=== PATIENT | female | born 1965 | race Caucasian/White ===

== ENCOUNTER 2023-06-01 14:24 | Outpatient (CLI) | payer BC | END 2023-06-01 14:25 | disposition home or self-care (01) | LOC: CSHMAMMO 14:24 | PROVIDERS: ATTEND Internal Medicine | DX: Z12.31 Encounter for screening mammogram for malignant neoplasm of breast (principal); Z80.3 Family history of malignant neoplasm of breast | CPT/HCPCS: 77063; 77067 ==

== ENCOUNTER 2023-10-06 08:26 | Outpatient (CLI) | payer BC | END 2023-10-06 08:27 | disposition home or self-care (01) | LOC: CSHWCC 08:26 | PROVIDERS: ATTEND Nurse Practitioner Family | DX: T20.29XD Burn of second degree of multiple sites of head, face, and neck, subsequent encounter (principal) | CPT/HCPCS: 97597; 97598; 99213; G0463 ==